=== PATIENT | female | born 1990 | race Caucasian/White ===

== ENCOUNTER 2019-04-16 16:42 | Outpatient (CLI) | payer BC ==
--- NOTE | 2019-04-16 17:20 | Non Stress Test Report ---
Non Stress Test Datetime Report Generated by CPN: 04/16/2019 17:19 DEMOGRAPHIC EGA NST: 35.4 INDICATION Indication for Study: Diabetes Mellitus MONITORING Monitor Explained: Monitor Explained; Test Explained; Patient Verbalized Understanding Time on Monitor: 04/16/2019 16:54 Time off Monitor: 04/16/2019 17:15 NST Duration: 21 NST INTERVENTIONS NST Interventions: None Physician Notified NST: J. Irving, CNM BABY A: [id number] BABY A Movement : Present Contraction Frequency : none FHR Baseline : 140 Accelerations : 15X15 Decelerations : None Variability : Moderate 6-25bpm NST Review: Meets Criteria for Reactive NST NST Review and Verified By : Sherrie Read RN NSCarter Results: Reactive NST REPORT Report Trigger: Send Report
== END 2019-04-16 17:20 | disposition home or self-care (01) ==
LOC: LC 16:42
PROVIDERS: ATTEND Student in an Organized Health Care Education/Training Program
PROC: 4A1HXCZ Monitoring of Products of Conception, Cardiac Rate, External Approach (ICD-10-PCS; principal; 2019-04-16)
DX: O24.419 Gestational diabetes mellitus in pregnancy, unspecified control (principal); Z3A.35 35 weeks gestation of pregnancy
CPT/HCPCS: 59025

== ENCOUNTER 2019-05-10 06:34 | Inpatient (IN) | payer BC ==
[2019-05-08 12:26] LABS: ABSOLUTE LYMPHOCYTES (AUTO) 2.1 10^3/uL (0.5-4.7); ABSOLUTE MONOCYTES (AUTO) 0.4 10^3/uL (0.1-1.4); ABSOLUTE NEUT (AUTO) 6.3 10^3/uL (1.7-8.2); BASOPHILS % (AUTO) 0.3 % (0-2); EOSINOPHILS % (AUTO) 0.2 % (0-6); HEMATOCRIT 35.2 % (36.0-47.0); HEMOGLOBIN 12.2 g/dL (12.0-15.5); LYMPHOCYTES % (AUTO) 23.7 % (13-45); MEAN CORPUSCULAR HEMOGLOBIN 28.8 pg (27.0-33.4); MEAN CORPUSCULAR HGB CONC 34.5 g/dL (32.0-36.0); MEAN CORPUSCULAR VOLUME 83 fl (80-97); MONOCYTES % (AUTO) 4.7 % (3-13); PLATELET COUNT 258 10^3/uL (150-450); RED BLOOD COUNT 4.22 10^6/uL (3.72-5.28); RED CELL DISTRIBUTION WIDTH 12.6 % (11.5-14.0); SEGMENTED NEUTROPHILS % (AUTO) 71.1 % (42-78); TOTAL CELLS COUNTED % (AUTO) 100 %; WHITE BLOOD COUNT 8.9 10^3/uL (4.0-10.5)
[2019-05-08 12:29] LABS: APPEARANCE,URINE SLIGHTLY-CLOUDY; BILIRUBIN,URINE NEGATIVE (NEGATIVE); COLOR,URINE YELLOW; GLUCOSE, URINE NEGATIVE (NEGATIVE); KETONES,URINE NEGATIVE (NEGATIVE); LEUKOCYTE ESTERASE,URINE NEGATIVE (NEGATIVE); NITRITE,URINE NEGATIVE (NEGATIVE); PROTEIN,URINE 30 mg/dL (NEGATIVE); URINE SPECIFIC GRAVITY 1.025; UROBILINOGEN,URINE NEGATIVE mg/dL (<2.0)
[2019-05-08 12:44] LABS: URINE AMPHETAMINES SCREEN NEGATIVE; URINE BARBITURATES SCREEN NEGATIVE; URINE BENZODIAZEPINES SCREEN NEGATIVE; URINE COCAINE SCREEN NEGATIVE; URINE MARIJUANA (THC) SCREEN NEGATIVE; URINE METHADONE SCREEN NEGATIVE; URINE PHENCYCLIDINE SCREEN NEGATIVE
[2019-05-08 12:53] LABS: ANION GAP 8 (5-19); BLOOD UREA NITROGEN 9 mg/dL (7-20); CALCIUM 9.4 mg/dL (8.4-10.2); CARBON DIOXIDE 23 mmol/L (22-30); CHLORIDE 107 mmol/L (98-107); GLUCOSE 100 mg/dL (75-110); POTASSIUM 4.2 mmol/L (3.6-5.0)
[~2019-05-10 06:34] MED LIST: CEFAZOLIN SODIUM 2 GM in DEXTROSE 5%-WATER 100 ML IV PRN; KETOROLAC TROMETHAMINE 60 MG/2 ML SDV ONE; LACTATED RINGERS 1000 ML IV PRN; ONDANSETRON HCL INJ/PF 4 MG/2 ML SDV ONE; PHENYLEPHRINE HCL INJ/PF 10 MG/1 ML SDV ONE
[2019-05-10] MEDS ORDERED: OXYTOCIN/NORMAL SALINE 40 UNIT/2,000 ML RTUINJ ONE (12:19)
[2019-05-10] MEDS ORDERED: CLINDAMYCIN 900 MG/D5W RTU 900 MG/50 ML RTUPB IV ONE (12:19)
[2019-05-10] MEDS ORDERED: CITRIC ACID/SODIUM CITRATE ORAL SOLN 15 ML UDCUP ONE (12:19)
[2019-05-10] MEDS ORDERED: PROMETHAZINE HCL INJ 25 MG/1 ML VIAL IV PRN ×3 (13:03→13:26)
[2019-05-10] MEDS ORDERED: MEPERIDINE HCL/PF INJ 25 MG/1 ML DISP.SYRIN IV PRN (13:03)
[2019-05-10] MEDS ORDERED: DIPHENHYDRAMINE HCL 50 MG/ML VIAL IV PRN (13:03)
[2019-05-10] MEDS ORDERED: FENTANYL CITRATE INJ/PF 100 MCG/2 ML AMPUL IV PRN ×3 (13:03)
[2019-05-10] MEDS ORDERED: OXYTOCIN/NORMAL SALINE 20 UNIT/1,000 ML RTUINJ IV PRN (13:26)
[2019-05-10] MEDS ORDERED: HYDROMORPHONE HCL INJ/PF 2 MG/ML AMPULE IV PRN (13:26)
[2019-05-10] MEDS ORDERED: MEASLES,MUMPS&RUBELLA VACC/PF 0.5 ML VIAL SUBCUT PRN (13:26)
[2019-05-10] MEDS ORDERED: ACETAMINOPHEN 1,000 MG/100 ML RTUPB IV PRN (13:26)
[2019-05-10] MEDS ORDERED: DIPH/PERTUSS(ACELL)/TETANUS VAC/PF 0.5 ML SYR (>=10YO) IM PRN (13:26)
[2019-05-10] MEDS ORDERED: SIMETHICONE 80 MG TAB.CHEW PO PRN (13:26)
[2019-05-10] MEDS ORDERED: RINGERS SOLUTION,LACTATED 1,000 ML IV PRN (13:26)
[2019-05-10] MEDS ORDERED: ACETAMINOPHEN 325 MG TABLET PO PRN (13:26)
--- NOTE | 2019-05-10 13:30 | Operative Report ---
Operative Report DATE OF SURGERY: 05/10/19 PREOPERATIVE DIAGNOSIS: Patient desires repeat POSTOPERATIVE DIAGNOSIS: Same OPERATION: Repeat via low transverse uterine incision SURGEON: JACINTA EDDY ANESTHESIA: Spinal TISSUE REMOVED OR ALTERED: Placenta COMPLICATIONS: None ESTIMATED BLOOD LOSS: 250 cc INTRAOPERATIVE FINDINGS: Viable infant normal uterus tubes and ovaries PROCEDURE: Patient was taken to the OR and placed in supine position after her spinal anesthesia. She is prepared and draped in sterile fashion. [place] was placed for drainage of the bladder. Low transverse incision was made and carried down the level of the fascia. The fascial incision was made with knife and extended bilaterally with curved Rodriguez scissors. The fascia was off the rectus muscles using sharp and blunt dissection. The rectus muscles are in the midline. The peritoneum was entered without incident. Bladder blade was placed in uterine segment was identified. A low transverse incision was made creating a bladder flap. Bladder blade was placed low transverse uterine incision was made with the knife and extended with fingertips. The baby was delivered with some fundal pressure. Mouth and nose were suctioned free. The cord is doubly clamped and cut. Baby is passed off to the room service food server in attendance. The placenta was manually extracted with trailing membranes. The uterus was externalized wrapped in a moist lap sponge. Uterine contents wiped free. Uterus was closed with a running locking layer of 0 chromic suture using the second layer to imbricate the first completing a double layer closure of the uterus. The serosa was closed with a running 2-0 chromic stitch. The pelvis was irrigated and suctioned free of fluid the uterus was replaced in the abdomen. The abdominal wall peritoneum was closed with running 2-0 chromic stitch. Fascia was closed with a running 0 Vicryl in 2 segments. Nayeli's layer was brought together with 0 plain gut stitch and the skin was closed with running subcuticular 4-0 undyed Vicryl stitch. The wound was dressed mother and baby did well.
--- NOTE | 2019-05-10 13:31 | PDOC DELIVERY SUMMARY ---
Delivery Summary - Maternal Hx : III Hx # Term Pregnancies: 2 Hx Total # of Abortions (Sponateous & Elective): 1 MARIANO: 05/17/19 Gestational Age: 39 Ruptured Membranes: AROM Time of Rupture: 12:52 Fluids: Clear - Delivery Presentation: Vertex Heart Rate Monitoring: Done Pre-Operatively Support Person Present: Yes Location: OR : Scheduled, Repeat Placenta: Within Normal Limits Delivery of Placenta Date: 05/10/19 Delivery of Placenta Time: 12:54 - Medications Type of Anesthesia:: Spinal - Assess and Care Baby 1 Male Delivery of Date: 05/10/19 Delivery of Infant Time: 12:53 at 1 minute: 9 at 5 minutes: 9 Preprinted Number On Band: [id number] Skin to Skin: Yes Skin to Skin (Mins): 5 To Nursery At: 13:02 Mode of Transport: Bassinet Infant Delivery Weight: 3,025 Infant Delivery Length: 19 in - Delivery Personnel Nursery RN: ELI BARRETT MD: JACINTA EDDY
[2019-05-10] MEDS ORDERED: ACETAMINOPHEN 1,000 MG/100 ML RTUPB IV ONE (14:08)
[2019-05-10] MEDS ORDERED: FENTANYL CITRATE INJ/PF 100 MCG/2 ML AMPUL ONE (14:45)
[2019-05-10] MEDS: KETOROLAC TROMETHAMINE INJ/PF 30 MG/1 ML SDV IV SCH ×2 (15:49→22:24)
[2019-05-10] MEDS: DOCUSATE SODIUM 100 MG CAPSULE PO SCH (18:00)
[2019-05-10] MEDS: OXYCODONE-ACETAMINOPHEN 5-325 MG TABLET PO PRN (18:00)
[2019-05-11] MEDS: OXYCODONE-ACETAMINOPHEN 5-325 MG TABLET PO PRN ×2 (01:24→06:27)
[2019-05-11] MEDS: KETOROLAC TROMETHAMINE INJ/PF 30 MG/1 ML SDV IV SCH (06:18)
[2019-05-11 08:09] LABS: HEMATOCRIT 29.5 % (36.0-47.0); HEMOGLOBIN 10.3 g/dL (12.0-15.5); MEAN CORPUSCULAR HEMOGLOBIN 29.4 pg (27.0-33.4); MEAN CORPUSCULAR HGB CONC 34.8 g/dL (32.0-36.0); MEAN CORPUSCULAR VOLUME 85 fl (80-97); PLATELET COUNT 184 10^3/uL (150-450); RED BLOOD COUNT 3.49 10^6/uL (3.72-5.28); RED CELL DISTRIBUTION WIDTH 12.6 % (11.5-14.0); WHITE BLOOD COUNT 7.4 10^3/uL (4.0-10.5)
[2019-05-11] MEDS: DOCUSATE SODIUM 100 MG CAPSULE PO SCH ×2 (09:21→17:25)
[2019-05-11] MEDS: PRENATAL VITAMIN W DHA CAPSULE PO SCH (09:21)
[2019-05-11] MEDS: IBUPROFEN 800 MG TABLET PO SCH ×2 (12:16→17:25)
--- NOTE | 2019-05-11 12:44 | PDOC PROGRESS REPORT ---
Subjective-OB Progress Note for:: 05/11/19 Subjective: reports bleeding slowing, pain controlled with current meds, denies needs, + passing gas Physical Exam (OB) Vital Signs: Temp Pulse Resp BP Pulse Ox 98.0 F 77 16 116/70 98 05/11/19 11:55 05/11/19 11:55 05/11/19 11:55 05/11/19 11:55 05/11/19 11:55 Intake & Output 05/10/19 05/11/19 05/12/19 06:59 06:59 06:59 Output Total 2850 Balance -2850 Weight 129.7 kg - Dressing Removed: No - opsite Incision: Dressing, Well Approximated - Abdomen Description: Soft Fundal Description: Firm, Midline Fundal Height: u/u - u/2 - Abdominal Distension: No distension Tenderness: Nontender - Extremities Lower extremities: Terri's sign - neg Calf: Normal, Nontender Objective-Diagnostic Laboratory: 05/11/19 07:25 05/08/19 11:48 05/11/19 07:25 WBC 7.4 RBC 3.49 L Hgb 10.3 L Hct 29.5 L MCV 85 MCH 29.4 MCHC 34.8 RDW 12.6 Plt Count 184 05/08/19 11:15 Nasophary (Mrsa Only) MRSA Culture - Final NO MRSA RECOVERED Assessment and Plan(PN) - Assessment and Plan (1) S/P repeat low transverse Is this a current diagnosis for this admission?: Yes - Time Spent with Patient Time with patient: Less than 15 minutes Medications reviewed and adjusted accordingly: Yes - Disposition Anticipated Discharge: Home Within: within 48 hours
[2019-05-12] MEDS: OXYCODONE-ACETAMINOPHEN 5-325 MG TABLET PO PRN ×3 (00:40→17:42)
[2019-05-12] MEDS: IBUPROFEN 800 MG TABLET PO SCH ×4 (00:41→17:15)
--- NOTE | 2019-05-12 08:43 | PDOC PROGRESS REPORT ---
Subjective-OB Progress Note for:: 05/12/19 Subjective: reports bleeding slowing, pain controlled with current meds, + passing gas, denies needs Physical Exam (OB) Vital Signs: Temp Pulse Resp BP Pulse Ox 98.2 F 68 17 122/68 97 05/12/19 04:17 05/12/19 04:17 05/12/19 04:17 05/12/19 04:17 05/12/19 04:17 Intake & Output 05/11/19 05/12/19 05/13/19 06:59 06:59 06:59 Intake Total 1525 Output Total 2850 Balance -2850 1525 Weight 129.7 kg - Dressing Removed: No Incision: Dressing - op site Closure Type: Surgical Glue - Abdomen Description: Soft Hernia Present: No Fundal Description: Firm, Midline Fundal Height: u/u - u/2 - Abdominal Inspection: Normal Distension: No distension - Extremities Lower extremities: Terri's sign - neg Calf: Normal, Nontender Objective-Diagnostic Laboratory: 05/11/19 07:25 05/08/19 11:48 Assessment and Plan(PN) - Assessment and Plan (1) S/P repeat low transverse Is this a current diagnosis for this admission?: Yes - Time Spent with Patient Time with patient: Less than 15 minutes Medications reviewed and adjusted accordingly: Yes - Disposition Anticipated Discharge: Home Within: within 24 hours
[2019-05-12] MEDS: PRENATAL VITAMIN W DHA CAPSULE PO SCH (15:15)
[2019-05-12] MEDS: DOCUSATE SODIUM 100 MG CAPSULE PO SCH ×2 (15:16→17:40)
[2019-05-13] MEDS: IBUPROFEN 800 MG TABLET PO SCH ×3 (00:19→12:00)
[2019-05-13] MEDS: OXYCODONE-ACETAMINOPHEN 5-325 MG TABLET PO PRN (04:01)
[2019-05-13] MEDS: PRENATAL VITAMIN W DHA CAPSULE PO SCH (09:24)
[2019-05-13] MEDS: DOCUSATE SODIUM 100 MG CAPSULE PO SCH (09:24)
--- NOTE | 2019-05-13 12:07 | PDOC DISCHARGE SUMMARY ---
Impression - Admit/DC Date/PCP Admission Date/Primary Care Provider: 05/10/19 06:34 Discharge Date: 05/13/19 - Discharge Diagnosis (1) S/P repeat low transverse Is this a current diagnosis for this admission?: Yes - Additional Information Resuscitation Status: Full Code Discharge Diet: Regular Discharge Activity: Balance Activity w/Rest, No Lifting Over 10 Pounds, No Lifting/Push/Pulling, Pelvic Rest, No tub bath Prescriptions: Ibuprofen [Motrin 800 mg Tablet] 800 mg PO Q6HP PRN #90 tablet PRN Reason: Oxycodone HCl/Acetaminophen [Percocet 5-325 mg Tablet] 1 tab PO Q4HP PRN #30 tablet PRN Reason: Home Medications: Vitamin [-U Multiple Vitamin Capsule] 1 cap PO DAILY 04/16/19 Ibuprofen [Motrin 800 mg Tablet] 800 mg PO Q6HP PRN #90 tablet 05/13/19 Oxycodone HCl/Acetaminophen [Percocet 5-325 mg Tablet] 1 tab PO Q4HP PRN #30 tablet 05/13/19 HPI Gestational Age: 39 Reason(s) for Admission: Ceasarean Section-Repeat Procedures: NST Intrapartum Procedure(s): : Low Cervical, Transverse Results Laboratory Results: WBC 7.4 10^3/uL (4.0-10.5) 05/11/19 07:25 RBC 3.49 10^6/uL (3.72-5.28) L 05/11/19 07:25 Hgb 10.3 g/dL (12.0-15.5) L 05/11/19 07:25 Hct 29.5 % (36.0-47.0) L 05/11/19 07:25 MCV 85 fl (80-97) 05/11/19 07:25 MCH 29.4 pg (27.0-33.4) 05/11/19 07:25 MCHC 34.8 g/dL (32.0-36.0) 05/11/19 07:25 RDW 12.6 % (11.5-14.0) 05/11/19 07:25 Plt Count 184 10^3/uL (150-450) 05/11/19 07:25 Lymph % (Auto) 23.7 % (13-45) 05/08/19 11:48 [place] % (Auto) 4.7 % (3-13) 05/08/19 11:48 Eos % (Auto) 0.2 % (0-6) 05/08/19 11:48 Baso % (Auto) 0.3 % (0-2) 05/08/19 11:48 Absolute Neuts (auto) 6.3 10^3/uL (1.7-8.2) 05/08/19 11:48 Absolute Lymphs (auto) 2.1 10^3/uL (0.5-4.7) 05/08/19 11:48 Absolute Monos (auto) 0.4 10^3/uL (0.1-1.4) 05/08/19 11:48 Absolute Eos (auto) 0.0 10^3/uL (0.0-0.6) 05/08/19 11:48 Absolute Basos (auto) 0.0 10^3/uL (0.0-0.2) 05/08/19 11:48 Seg Neutrophils % 71.1 % (42-78) 05/08/19 11:48 Sodium 137.9 mmol/L (137-145) 05/08/19 11:48 Potassium 4.2 mmol/L (3.6-5.0) 05/08/19 11:48 Chloride 107 mmol/L (98-107) 05/08/19 11:48 Carbon Dioxide 23 mmol/L (22-30) 05/08/19 11:48 Anion Gap 8 (5-19) 05/08/19 11:48 BUN 9 mg/dL (7-20) 05/08/19 11:48 Creatinine 0.75 mg/dL (0.52-1.25) 05/08/19 11:48 Est GFR ( Amer) > 60 (>60) 05/08/19 11:48 Est GFR (MDRD) Non-Af > 60 (>60) 05/08/19 11:48 Glucose 100 mg/dL (75-110) 05/08/19 11:48 POC Glucose 84 mg/dL (70-110) 05/10/19 08:03 Calcium 9.4 mg/dL (8.4-10.2) 05/08/19 11:48 Urine Color YELLOW 05/08/19 11:40 Urine Appearance SLIGHTLY-CLOUDY 05/08/19 11:40 Urine pH 7.0 (5.0-9.0) 05/08/19 11:40 Ur Specific [place] 1.025 05/08/19 11:40 Urine Protein 30 mg/dL (NEGATIVE) H 05/08/19 11:40 Urine Glucose (UA) NEGATIVE mg/dL (NEGATIVE) 05/08/19 11:40 Urine Ketones NEGATIVE mg/dL (NEGATIVE) 05/08/19 11:40 Urine Blood NEGATIVE (NEGATIVE) 05/08/19 11:40 Urine Nitrite NEGATIVE (NEGATIVE) 05/08/19 11:40 Urine Bilirubin NEGATIVE (NEGATIVE) 05/08/19 11:40 Urine Urobilinogen NEGATIVE mg/dL (<2.0) 05/08/19 11:40 Ur Leukocyte Esterase NEGATIVE (NEGATIVE) 05/08/19 11:40 Urine WBC (Auto) 1 /HPF 05/08/19 11:40 Urine RBC (Auto) 1 /HPF 05/08/19 11:40 Urine Bacteria (Auto) TRACE /HPF 05/08/19 11:40 Squamous Epi Cells Auto 5 /HPF 05/08/19 11:40 Urine Mucus (Auto) OCC /LPF 05/08/19 11:40 Urine Ascorbic Acid NEGATIVE (NEGATIVE) 05/08/19 11:40 Urine Opiates Screen NEGATIVE 05/08/19 11:40 Urine Methadone Screen NEGATIVE 05/08/19 11:40 Ur Barbiturates Screen NEGATIVE 05/08/19 11:40 Ur Phencyclidine Scrn NEGATIVE 05/08/19 11:40 Ur Amphetamines Screen NEGATIVE 05/08/19 11:40 U Benzodiazepines Scrn NEGATIVE 05/08/19 11:40 Urine Cocaine Screen NEGATIVE 05/08/19 11:40 U Marijuana (THC) Screen NEGATIVE 05/08/19 11:40 Blood Type A POSITIVE 05/10/19 08:00 Antibody Screen NEGATIVE 05/10/19 08:00 Plan Plan of Treatment: f/u 1 week at [facility] for incision check
[2019-05-13 12:24] VITALS: BP 116/70
== END 2019-05-13 14:30 | disposition home or self-care (01) | DRG 788 ==
LOC: 2S 06:34
PROVIDERS: ADMIT Obstetrics & Gynecology; ATTEND Obstetrics & Gynecology
PROC: 10D00Z1 Extraction of Products of Conception, Low, Open Approach (ICD-10-PCS; principal; 2019-05-10 09:30)
DX: O34.211 Maternal care for low transverse scar from previous cesarean delivery (principal); O24.425 Gestational diabetes mellitus in childbirth, controlled by oral hypoglycemic drugs; O99.824 Streptococcus B carrier state complicating childbirth; N85.8 Other specified noninflammatory disorders of uterus; Z3A.39 39 weeks gestation of pregnancy; Z37.0 Single live birth
CPT/HCPCS: 1961; 36415; 59025; 80048; 80307; 81001; 82962; 85025; 85027; 86850; 86900; 86901; 87070; 94799; J0131; J0690; J1885; J2370; J2405; J2590; J3010; J3490; J7060; J7120